=== PATIENT | male | born 1965 | race American Indian/Alaskan Native ===

== ENCOUNTER 2017-11-01 10:51 | Emergency (ER) | payer BC ==
[2017-11-01 10:57] VITALS: RESP 18; TEMP 97.7
--- NOTE | 2017-11-01 11:14 | ED PDOC ---
Arrival/HPI - General Chief Complaint: Back Pain Time Seen by Provider: 11/01/17 11:07 Historian: Patient - History of Present Illness Narrative History of Present Illness (Text): 11/01/17 11:11 51yo morbidly obese male with PMhx of hypertension present with complaint of lower back pain x one week. Notes previous history of similar pain in the past. Pain is sharp and intermittent. Pain is usually with movement. Notes that he was taking Ibuprofen 800mg and Tylenol # 3 with some relieve. He denies trauma, focal weakness, abdominal pain, urinary symptoms, fever, urinary/fecal incontinence, saddle anesthesia, any other complaint. Past Medical History - Provider Review Nursing Documentation Reviewed: Yes - Infectious Disease Hx of Infectious Diseases: None - Cardiac Hx Hypertension: Yes - Musculoskeletal/Rheumatological Hx Arthritis: Yes - Psychiatric Hx Substance Use: No - Surgical History Hx Orthopedic Surgery: Yes (b/l knee, b/l shldrs,right thumb) Family/Social History - Physician Review Nursing Documentation Reviewed: Yes Family/Social History: Unknown Family HX Smoking Status: Never Smoked Hx Alcohol Use: No Hx Substance Use: No Allergies/Home Meds Allergies/Adverse Reactions: Allergies No Known Allergies Allergy (Verified 11/01/17 10:57) Home Medications: Home Meds Medication Instructions Recorded Confirmed Amlodipine Bes/Olmesartan Med 1 tab PO DAILY 11/01/17 11/01/17 [Matheus 10-40 mg Tablet] Review of Systems - Physician Review All systems were reviewed & negative as marked: Yes - Review of Systems Constitutional: Normal Eyes: Normal ENT: Normal Respiratory: Normal Cardiovascular: Normal Gastrointestinal: Normal Genitourinary Male: Normal Musculoskeletal: Back Pain Skin: Normal Neurological: Normal Endocrine: Normal Hemo/Lymphatic: Normal Psychiatric: Normal Physical Exam Vital Signs Reviewed: Yes Vital Signs Temp Pulse Resp BP Pulse Ox 11/01/17 13:28 86 18 138/74 98 11/01/17 10:52 97.7 F 93 H 18 142/89 99 Temperature: Afebrile Blood Pressure: Normal Pulse: Regular Respiratory Rate: Normal Appearance: Positive for: Well-Appearing, Non-Toxic, Comfortable Pain Distress: None Mental Status: Positive for: Alert and Oriented X 3 - Systems Exam Head: Present: Atraumatic, Normocephalic Pupils: Present: PERRL Extroacular Muscles: Present: EOMI Conjunctiva: Present: Normal Mouth: Present: Moist Mucous Membranes Neck: Present: Normal Range of Motion Respiratory/Chest: Present: Clear to Auscultation, Good Air Exchange. No: Respiratory Distress, Accessory Muscle Use Cardiovascular: Present: Regular Rate and Rhythm, Normal S1, S2. No: Murmurs Abdomen: Present: Normal Bowel Sounds. No: Tenderness, Distention, Peritoneal Signs Back: Present: Paraspinal Tenderness (Paralumbar tenderness b/l), Pain with Leg Raise (right leg). No: Midline Tenderness Upper Extremity: Present: Normal Inspection. No: Cyanosis, Edema Lower Extremity: Present: Normal Inspection. No: Edema Neurological: Present: GCS=15, CN II-XII Intact, Speech Normal Skin: Present: Warm, Dry, Normal Color. No: Rashes Psychiatric: Present: Alert, Oriented x 3, Normal Insight, Normal Concentration Medical Decision Making ED Course and Treatment: 11/01/17 18:23 Pt in ED for lower back pain. On re e evaluation he notes that his pain improved with medication in ED. He was ambulatory and neurologically intact. LS negative Result was DC with the pt and rx of Naprosyn and flexeril given. Referred to ortho. - RAD Interpretation Radiology Orders: 11/01/17 11:10 LS SPINE WITH OBL > 18 YRS OLD [RAD] Stat - Medication Orders Current Medication Orders: Discontinued Medications Cyclobenzaprine HCl (Flexeril) 10 mg PO STAT STA Stop: 11/01/17 11:11 Last Admin: 11/01/17 11:36 Dose: 10 mg Ketorolac Tromethamine (Toradol) 60 mg IM STAT STA Stop: 11/01/17 11:11 Last Admin: 11/01/17 11:36 Dose: 60 mg MAR Pain Assessment Document 11/01/17 11:36 EQ (Rec: 11/01/17 11:37 EQ [facility] [id number]) Pain Reassessment Is this a pain reassessment? No Sleep Is patient sleeping during reassessment? No Presence of Pain Presence of Pain Yes IM Administration Charges Document 11/01/17 11:36 EQ (Rec: 11/01/17 11:37 EQ [facility] [id number]) Charges for Administration # of IM Administrations 1 Disposition/Present on Arrival - Present on Arrival Any Indicators Present on Arrival: No History of DVT/PE: No History of Uncontrolled Diabetes: No Urinary Catheter: No History of Decub. Ulcer: No History Surgical Site Infection Following: None - Disposition Have Diagnosis and Disposition been Completed?: Yes Diagnosis: Back pain Disposition: HOME/ ROUTINE Disposition Time: 13:25 Patient Plan: Discharge Condition: STABLE Discharge Instructions (ExitCare): Back Pain (ED) Additional Instructions: Follow up with your doctor Return to ED for any new or worsening symptoms Prescriptions: Cyclobenzaprine [Cyclobenzaprine HCl] 10 mg PO TID #12 tab Naproxen [Naprosyn] 500 mg PO BID #20 tablet Referrals: Televerdejuliette Khoury, [Primary Care Provider] - Follow up with primary Eliu Dave MD [Staff Provider] - Follow up with primary Forms: [employer] (Kazakh)
--- NOTE | 2017-11-01 12:56 | RAD ---
PROCEDURE: Radiographs of the Lumbar Spine. HISTORY: back pain COMPARISON: No prior. FINDINGS: BONES: Normal alignment. No listhesis. No fracture. DISC SPACES: Unremarkable. OTHER FINDINGS: None. IMPRESSION: Unremarkable radiographs of the lumbar spine.
[2017-11-01 13:29] VITALS: BP 138/74; PULSE 86; O2SAT 98
== END 2017-11-01 13:55 | disposition home or self-care (01) ==
LOC: ED 10:51
DX: M54.5 Low back pain (principal)
CPT/HCPCS: 72110; 96372; 99282; J1885

== ENCOUNTER 2018-05-30 11:22 | Emergency (ER) | payer BC ==
[2018-05-30 11:53] VITALS: BMI 35.4
[2018-05-30 12:08] VITALS: BP 130/90; PULSE 84; RESP 18
--- NOTE | 2018-05-30 12:18 | ED PDOC ---
Arrival/HPI - General Chief Complaint: Lower Extremity Problem/Injury Time Seen by Provider: 05/30/18 11:32 Historian: Patient - History of Present Illness Narrative History of Present Illness (Text): 05/30/18 12:01 Patient is a 52 year old male who presents to the Emergency Department complaining of right knee pain and swelling, which started a few weeks ago. Patient reports that the pain is severe and has been taking Ibuprofen with little alleviation. His last Ibuprofen dose was this morning approximately 5- 6am. He notes that he had one incident where his right knee "gave out" causing him to fall but denies injury from that fall. He mentions seeing an orthopedic at [facility]. He denies any history of kidney disease. Patient denies fevers, chills, cough, abdominal pain, neck/back pain, urinary/bowel changes, headache, dizziness, or any other complaint. Orthopedics: Dr.Jonny Hernandez Time/Duration: > week Symptom Course: Unchanged Severity Level: Severe Context: Home Past Medical History - Provider Review Nursing Documentation Reviewed: Yes - Infectious Disease Hx of Infectious Diseases: None - Cardiac Hx Hypertension: Yes - Musculoskeletal/Rheumatological Hx Arthritis: Yes - Psychiatric Hx Substance Use: No - Surgical History Hx Orthopedic Surgery: Yes (b/l knee, b/l shldrs,right thumb) - Anesthesia Hx Anesthesia: Yes Family/Social History - Physician Review Nursing Documentation Reviewed: Yes Family/Social History: No Known Family HX Smoking Status: Never Smoked Hx Alcohol Use: No Hx Substance Use: No Allergies/Home Meds Allergies/Adverse Reactions: Allergies No Known Allergies Allergy (Verified 05/30/18 11:53) Home Medications: Home Meds Medication Instructions Recorded Confirmed Amlodipine Bes/Olmesartan Med 1 tab PO DAILY 11/01/17 11/01/17 [Matheus 10-40 mg Tablet] Review of Systems - Physician Review All systems were reviewed & negative as marked: Yes - Review of Systems Constitutional: absent: Fevers Musculoskeletal: absent: Back Pain Physical Exam - Physical Exam Narrative Physical Exam (Text): 05/30/18 12:21 Constitutional: No acute distress. Head: Normocephalic. Atraumatic. Eyes: PERRL. ENT: Moist mucous membranes. Neck: Supple. Cardiovascular: Regular rate. Chest: No tenderness. Respiratory: Clear to auscultation bilaterally. GI: Soft. Nontender. Nondistended. Back: No CVA tenderness. Musculoskeletal: Mild right knee effusion. No bony tenderness. FROM of right knee. Skin: No rash. Neurologic: Alert, no focal deficit. Vital Signs Reviewed: Yes Vital Signs Temp Pulse Resp BP Pulse Ox 05/30/18 12:06 98.2 F 84 18 130/90 97 Temperature: Afebrile Blood Pressure: Normal Pulse: Regular Respiratory Rate: Normal Appearance: Positive for: Well-Appearing Mental Status: Positive for: Alert and Oriented X 3 Medical Decision Making ED Course and Treatment: 05/30/18 12:22 Impression: Patient is a 52 year old male who presents to the Emergency Department complaining of severe right knee pain and swelling that started a weeks ago. Plan: --Toradol --knee X-ray -- Reassess and disposition Prior Visits: Notes and results from previous visits were reviewed. Progress Notes: Patient in no acute distress. Knee XR shows narrow joint spaces and degenerative changes, no fracture as read by me. GARRISON wrap placed, crutches provided and instructed on their use. F/u Ortho, instructed to return to ED for worsening pain, fever, or any other problem. - RAD Interpretation Radiology Orders: 05/30/18 12:00 KNEE RIGHT 2 VIEWS (AP & LAT) [RAD] Stat - Medication Orders Current Medication Orders: Discontinued Medications Ketorolac Tromethamine (Toradol) 60 mg IM STAT STA Stop: 05/30/18 12:01 Last Admin: 05/30/18 12:13 Dose: 60 mg MAR Pain Assessment Document 05/30/18 12:13 [email or web address] (Rec: 05/30/18 12:14 CAST [id number]) Pain Reassessment Is this a pain reassessment? No Sleep Is patient sleeping during reassessment? No Presence of Pain Presence of Pain Yes Pain Scale Used Pain Scale Used Numeric Location Left, Right or Bilateral Right Pain Location Body Site Knee Description Description Constant Intensity of Pain at present 7 Pain Behavior Facial Grimacing Aggravating Factors Changing Position Alleviating Factors/Management Medication Techniques Alleviating Factors Medication IM Administration Charges Document 05/30/18 12:13 [email or web address] (Rec: 05/30/18 12:14 [email or web address] [id number]) Injection Site MAR Injection Site Right Gluteus Rodney Charges for Administration # of IM Administrations 1 - Scribe Statement The provider has reviewed the documentation as recorded by the Scribe Alessandro Rodriguez Provider Scribe Attestation: All medical record entries made by the Scribe were at my direction and personally dictated by me. I have reviewed the chart and agree that the record accurately reflects my personal performance of the history, physical exam, medical decision making, and the department course for this patient. I have also personally directed, reviewed, and agree with the discharge instructions and disposition. Disposition/Present on Arrival - Present on Arrival Any Indicators Present on Arrival: No History of DVT/PE: No History of Uncontrolled Diabetes: No Urinary Catheter: No History of Decub. Ulcer: No History Surgical Site Infection Following: None - Disposition Have Diagnosis and Disposition been Completed?: Yes Diagnosis: Knee pain Disposition: HOME/ ROUTINE Disposition Time: 12:36 Patient Plan: Discharge Condition: STABLE Discharge Instructions (ExitCare): Knee Pain (DC) Additional Instructions: Follow up with your private Orthopedist. Forms: [employer] (Andorran)
--- NOTE | 2018-05-30 12:42 | RAD ---
Date of service: 05/30/2018 PROCEDURE: Right Knee Radiographs. HISTORY: knee pain COMPARISON: None. FINDINGS: BONES: Normal. No fracture. JOINTS: There is severe joint space narrowing on the medial side. Small osteophyte. No bony sclerosis JOINT EFFUSION: None. OTHER FINDINGS: None. IMPRESSION: There is severe joint space narrowing on the medial side. Small osteophyte. No bony sclerosis
[2018-05-30 13:14] VITALS: TEMP 98.1; O2SAT 98
== END 2018-05-30 13:13 | disposition home or self-care (01) ==
LOC: ED 11:22
DX: M25.561 Pain in right knee (principal)
CPT/HCPCS: 73560; 96372; 99282; J1885

== ENCOUNTER 2018-06-17 16:42 | Emergency (ER) | payer OTHER, BC ==
[2018-06-17 16:42] VITALS: BMI 35.4
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
[2018-06-17 17:23] VITALS: RESP 19; O2SAT 99
[2018-06-17 19:01] VITALS: BP 130/54; PULSE 85; TEMP 98
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
== END 2018-06-17 19:04 | disposition home or self-care (01) ==
LOC: ED 16:42
DX: S49.91XA Unspecified injury of right shoulder and upper arm, initial encounter (principal); V49.9XXA Car occupant (driver) (passenger) injured in unspecified traffic accident, initial encounter; M25.511 Pain in right shoulder

== ENCOUNTER 2018-12-07 15:12 | Emergency (ER) | payer BC, OTHER ==
[2018-12-07 15:28] VITALS: BMI 35.2
[2018-12-07 15:42] VITALS: BP 142/71; PULSE 89; RESP 18; TEMP 98.2; O2SAT 96
--- NOTE | 2018-12-07 15:42 | ED PDOC ---
Arrival/HPI - General Chief Complaint: Upper Extremity Problem/Injury Time Seen by Provider: 12/07/18 15:21 Historian: Patient - History of Present Illness Time/Duration: Prior to Arrival Symptom Onset: Sudden Symptom Course: Unchanged Severity Level: Mild Associated Symptoms (Text): 12/07/18 15:39 Patient reports a right shoulder replacement in [facility] November 26 of this year. He was getting out of the shower when the wound suddenly began to bleed. He dressed the wound, but it bled through the dressing. There is no pain. He reports that he did not have any unusual movements. The wound continues to bleed in the emergency department. There is approximately a 3 mm area of wound dehiscence with dark red blood. There appears to be hematoma under the wound which is bleeding. I was able to express the hematoma and the bleeding has been controlled. No purulent discharge. No signs of wound infection. No fever. No trauma. Past Medical History - Infectious Disease Hx of Infectious Diseases: None - Cardiac Hx Hypertension: Yes - Musculoskeletal/Rheumatological Hx Arthritis: Yes - Psychiatric Hx Substance Use: No - Surgical History Hx Orthopedic Surgery: Yes (b/l knee, b/l shldrs,right thumb) Other/Comment: R shoulder sx - Anesthesia Hx Anesthesia: Yes Family/Social History - Physician Review Nursing Documentation Reviewed: Yes Family/Social History: Unknown Family HX Smoking Status: Never Smoked Hx Alcohol Use: No Hx Substance Use: No Allergies/Home Meds Allergies/Adverse Reactions: Allergies No Known Allergies Allergy (Verified 06/17/18 17:17) Home Medications: Home Meds Medication Instructions Recorded Confirmed Amlodipine Bes/Olmesartan Med 1 tab PO DAILY 11/01/17 06/17/18 [Matheus 10-40 mg Tablet] Review of Systems - Physician Review All systems were reviewed & negative as marked: Yes Physical Exam Vital Signs Temp Pulse Resp BP Pulse Ox 12/07/18 15:37 98.2 F 89 18 142/71 96 Temperature: Afebrile Blood Pressure: Normal Pulse: Regular Respiratory Rate: Normal Appearance: Positive for: Well-Appearing, Non-Toxic, Comfortable Pain Distress: None Mental Status: Positive for: Alert and Oriented X 3 - Systems Exam Upper Extremity: Present: Normal ROM, NORMAL PULSES, Neurovascularly Intact, Capillary Refill < 2s, Other (3 mm area of wound dehiscence with limited bleeding. No signs of wound infection.). No: Cyanosis, Edema, Tenderness, Swelling, Erythema, Deformity Medical Decision Making ED Course and Treatment: 12/07/18 15:42 Bleeding was controlled with evacuation of the hematoma. Sterile dressing applied. Patient has an appointment with his orthopedic surgeon in 3 days. Follow-up in the emergency department as needed. 12/07/18 15:54 Wound remains clean and dry. Disposition/Present on Arrival - Present on Arrival Any Indicators Present on Arrival: No History of DVT/PE: No History of Uncontrolled Diabetes: No Urinary Catheter: No History of Decub. Ulcer: No History Surgical Site Infection Following: None - Disposition Have Diagnosis and Disposition been Completed?: Yes Diagnosis: Wound dehiscence, Wound dehiscence, surgical, Hematoma Disposition: HOME/ ROUTINE Disposition Time: 15:55 Patient Plan: Discharge Condition: IMPROVED Discharge Instructions (ExitCare): Wound Dehiscence, Wound Dehiscence (DC) Forms: [employer] (Ukrainian)
== END 2018-12-07 16:33 | disposition home or self-care (01) ==
LOC: ED 15:12
DX: T81.31XA Disruption of external operation (surgical) wound, not elsewhere classified, initial encounter (principal); L76.32 Postprocedural hematoma of skin and subcutaneous tissue following other procedure; I10 Essential (primary) hypertension